=== PATIENT | female | born 1980 | race Caucasian/White ===

== ENCOUNTER → 2017-12-28 | Outpatient (CLI) | payer OTHER, MEDICAID ==
[~2017-12-28] MED LIST: ADVAIR HFA115 MCG/21 INH; ASPIRIN325 PO; AZITHROMYCIN 2250 MG PO; BACTRIM DS TAB1 EACH PO; BROVANA15 MCG/2 M INH; CLONAZEPAM 0.50.5 M1 PO; COMBIVENT INH; COMPAZINE10 MG PO; CYMBALTA20 MG PO; DOXYCYCLINE 10100 MG; HYDROCODONE-AP1 EAC6 PO; HYDROXYCHLOROQ200 M1 PO; LEVAQUIN 500 M500 M2 PO; LEVAQUIN 500 M500 M4 PO; MOBIC7.5 MG PO; NAMENDA XR28 MG PO; NEURONTIN 300300 M1 PO; PREDNISONE 10 M10 MG PO; PREDNISONE 20 M20 MG PO; PULMICORT0.5 MG/22 INH; ROBAXIN 750 MG750 M1 PO; SINGULAIR 10 MG10 M1 PO; TOPAMAX 100 MG100 MG PO; TOPAMAX 25 MG T25 M1 PO; TRAMADOL 50 MG50 MG PO; TRAZODONE 150150 M1 PO; VENTOLIN HFA 1818 GM INH; VICODIN 5-3001 EACH PO; ZOFRAN4 MG PO
== END ==
LOC: M.CT 12:34
DX: R07.9 Chest pain, unspecified (principal); R16.0 Hepatomegaly, not elsewhere classified; N20.0 Calculus of kidney

== ENCOUNTER 2018-01-04 17:06 | Emergency (ER) | payer OTHER, MEDICAID ==
[~2018-01-04] VITALS: Ht 170.2 cm; Wt 49.0 kg
[~2018-01-04 17:06] MED LIST changes: -AZITHROMYCIN 2250 MG PO; -BACTRIM DS TAB1 EACH PO; -MOBIC7.5 MG PO; -ZOFRAN4 MG PO
[2018-01-04] MEDS ORDERED: MOBIC7.5 MG PO (17:26)
[2018-01-04] MEDS ORDERED: PREDNISONE 10 M10 MG PO (17:27)
[2018-01-04] MEDS ORDERED: AZITHROMYCIN 2250 MG PO (17:27)
[2018-01-04 19:12] LABS: ABSOLUTE LYMPHOCYTES 1.6 thou/uL (0.8-5.3); ABSOLUTE MONOCYTES 0.5 thou/uL (0.0-1.2); ABSOLUTE NEUTROPHILS 5.2 thou/uL (1.6-8.1); BASOPHILS 0.2 %; EOSINOPHILS 0.2 %; HEMATOCRIT 34.4 % (37.0-47.0); HEMOGLOBIN 11.7 gm/dL (12.0-15.0); LYMPHOCYTES 21.4 %; MCHC 34.2 g/dL (28.0-37.0); MCV 90.9 fL (80.0-100.0); MONOCYTES 6.7 %; NUCLEATED RBCS 0 /100WBC; PLATELET COUNT* 104 thou/uL (150-400); POLYS 71.5 %; RBC 3.79 mil/uL (4.20-5.00); WBC 7.3 thou/uL (4.0-11.0)
[2018-01-04 19:34] LABS: ANION GAP 12 mmol/L (7-16); BUN 14 mg/dL (7-18); CHLORIDE 110 mmol/L (98-107); CO2 19 mmol/L (21-32); CREATININE 1.1 mg/dL (0.6-1.3); GLUCOSE 93 mg/dL (70-99); POTASSIUM 3.4 mmol/L (3.5-5.1); SGOT 16 U/L (15-37); SODIUM 141 mmol/L (136-145)
[2018-01-04 19:35] LABS: ALBUMIN 3.7 g/dL (3.4-5.0); ALKALINE PHOSPHATASE 55 U/L (46-116); CALCIUM 8.3 mg/dL (8.5-10.1); LIPASE 449 U/L (73-393); SGPT 21 U/L (30-65); TOTAL BILIRUBIN 0.4 mg/dL (<0.1-1.0); TOTAL PROTEIN 6.6 g/dL (6.4-8.2); TROPONIN-I LEVEL <0.06 ng/mL (<0.06)
[2018-01-04 20:00] LABS: URINE BILIRUBIN NEGATIVE (Negative); URINE BLOOD NEGATIVE (Negative); URINE CLARITY CLEAR; URINE COLOR YELLOW; URINE GLUCOSE-RANDOM NEGATIVE (Negative); URINE KETONES NEGATIVE (Negative); URINE LEUKOCYTES-REFLEX TRACE (Negative); URINE NITRITE-REFLEX NEGATIVE (Negative); URINE PROTEIN TRACE (Negative); URINE SPECIFIC GRAVITY >= 1.030 (1.005-1.030); URINE UROBILINOGEN 0.2 E.U./dl (0.2-1.0)
[2018-01-04 20:08] LABS: SQUAMOUS >10 Many /LPF (0-3)
[2018-01-04 20:09] LABS: BACTERIA-REFLEX 1-9 Few /HPF (None Seen); HYALINE CASTS 0-3 Few /LPF (None Seen); MUCUS 4-6 Moderate strn/LPF (None Seen); URINE WBC-REFLEX 6-15 Few /HPF (0-5)
[2018-01-04 20:10] LABS: CRYSTALS None Seen /LPF (None Seen); URINE RBC 0-2 Rare /HPF (0-2)
[2018-01-04] MEDS ORDERED: TRAMADOL 50 MG50 MG PO (21:14)
[2018-01-04] MEDS ORDERED: BACTRIM DS TAB1 EACH PO (21:14)
[2018-01-04] MEDS ORDERED: ZOFRAN4 MG PO (21:14)
[2018-01-04 21:40] VITALS: BP 97/51
--- NOTE | 2018-01-05 15:20 | EKG ---
[place] [address] ELECTROCARDIOGRAM REPORT Name: HANG CANDELARIO Room: [facility]#: [id number] Admission: 01/04/18 Attend Phys: Discharge: 01/04/18 Date of : 78 Report #: [id number] THIS REPORT FOR: //name// [facility] ED Test Date: 2018-01-04 Test Time: 18:58:26 Pat Name: HANG CANDELARIO Department: Room: Gender: F [employer]: María REYES : 1980 Requested By: Cierra Christie Order Number: [id number] MD: Tim Carr Measurements Intervals Dingess Rate: 57 P: -45 GA: 119 QRS: 90 QRSD: 86 T: 43 QT: 462 QTc: 450 Interpretive Statements Sinus or ectopic atrial rhythm Borderline short GA interval Borderline right axis deviation Borderline T abnormalities, anterior leads Compared to ECG 09/17/2017 19:36:01 Ectopic atrial rhythm now present Sinus rhythm no longer present T-wave abnormality still present Electronically Signed On 01-05-2018 15:20:43 TAPPER BIT by Tim Carr [email or web address] <ELECTRONICALLY SIGNED> By: Tim Carr MD, FAC 01/05/18 1520 57 57 Tim Carr MD, FAC /EPI
== END 2018-01-04 21:40 | disposition home or self-care (01) ==
LOC: M.ERS 17:06
PROVIDERS: Nurse Practitioner Family
DX: K85.90 Acute pancreatitis without necrosis or infection, unspecified (principal); R06.00 Dyspnea, unspecified; N39.0 Urinary tract infection, site not specified; M32.9 Systemic lupus erythematosus, unspecified; N18.2 Chronic kidney disease, stage 2 (mild); J45.909 Unspecified asthma, uncomplicated; D68.61 Antiphospholipid syndrome; Z88.0 Allergy status to penicillin; Z86.73 Personal history of transient ischemic attack (TIA), and cerebral infarction without residual deficits

== ENCOUNTER → 2018-01-22 | Outpatient (CLI) | payer OTHER, MEDICAID ==
[~2018-01-22] MED LIST changes: +AZITHROMYCIN 2250 MG PO; +BACTRIM DS TAB1 EACH PO; +MOBIC7.5 MG PO; +ZOFRAN4 MG PO
== END ==
LOC: M.ULTRA 08:39
DX: N28.1 Cyst of kidney, acquired (principal); R16.0 Hepatomegaly, not elsewhere classified